=== PATIENT | female | born 1945 | race Caucasian/White ===

== ENCOUNTER 2016-08-30 15:55 | Emergency (ER) | payer MEDICARE, BC ==
[2016-08-30 16:23] VITALS: BP 136/84
--- NOTE | 2016-08-30 17:01 | EDM.PDOC ---
[id number] LEFT KNEE SEEMS INFECTED Time Seen by Provider: 08/30/16 16:35 Source: Reports: Patient History Limitations: Reports: No limitations - History of Present Illness INITIAL COMMENTS - FREE TEXT/NARRATIVE: 71-year-old healthy female felt an irritation on the inside of her left knee over the past 2 days, yesterday pulled a thorn out of her medial knee. Today she noticed it was still irritated so after a hike she checked it and it was reddened with a small streak running up the medial aspect of her thigh. She has just a small amount of discomfort and no fever. Timing: Reports: still present Location, Skin: Reports: lower extremity, left Associated symptoms: Denies: denies other symptoms, shortness of breath - Related Data Allergies Allergy/AdvReac Type Severity Reaction Status Date / Time cat dander Allergy Difficulty Verified 08/30/16 16:20 Breathing dog dander Allergy Difficulty Verified 08/30/16 16:20 Breathing Sulfa (Sulfonamide Allergy Rash Verified 08/30/16 16:20 Antibiotics) venom-honey bee Allergy Hives Verified 08/30/16 16:20 [bee venom (honey bee)] Home Meds: Ambulatory Orders Medication Instructions Recorded Confirmed EPINEPHrine [Epinephrine] 0.3 mg IM ASDIRECTED PRN 09/11/15 08/30/16 Past Medical History HEENT History: Reports: Allergic rhinitis, Cataract Cardiovascular History: Reports: Heart murmur Gastrointestinal History: Reports: Colon polyp PROCESS OWNER History: Reports: Musculoskeletal History: Reports: Arthritis, Neck pain, chronic Neurological History: Reports: Seizure - Infectious Disease History Infectious Disease History: Reports: Other (see below) Other Infectious Disease History: possible tick borne illness - Past Surgical History HEENT Surgical History: Reports: Tonsillectomy GI Surgical History: Reports: Colonoscopy Female Surgical History: Reports: Breast biopsy, Other (see below) Other Female Surgeries/Procedures: bladder sling Musculoskeletal Surgical History: Reports: Arthroscopic knee, Other (see below) Other Musculoskeletal Surgeries/Procedures:: left knee meniscus tear repair Social & Family History - Tobacco Use Smoking Status *Q: Never Smoker Second Hand Smoke Exposure: No - Caffeine Use Caffeine Use: Reports: Coffee - Recreational Drug Use Recreational Drug Use: No ED ROS GENERAL - Review of Systems Review Of Systems: See Below Constitutional: Denies: fever Respiratory: Denies: Shortness of Breath Cardiovascular: Denies: Chest pain GI/Abdominal: Denies: Abdominal pain, Nausea, Vomiting ED EXAM, SKIN/RASH Exam: See Below Exam Limited By: No limitations General Appearance: alert, no apparent distress Respiratory/Chest: no respiratory distress Extremities: other (Exam is otherwise limited to the left knee. There is erythema and slight warmth over the medial aspect with a streak of redness up the medial thigh. No fluctuance or significant tenderness. No knee effusion.) Course - Vital Signs Last Recorded V/S: Last Vital Signs Temp 97.7 F 08/30/16 16:19 Pulse 74 08/30/16 16:19 Resp 14 08/30/16 16:19 BP 136/84 08/30/16 16:19 Pulse Ox 98 08/30/16 16:19 - Re-Assessments/Exams Free Text/Narrative Re-Assessment/Exam: 08/30/16 17:02 Patient will be placed on Augmentin twice daily for at least 5 days, she has an appointment with her primary doctor in 4 days so she can be rechecked at that time. Return sooner if worsening or concerns. Departure - Departure Time of Disposition: 17:14 Disposition: Home, Self-Care 01 Condition: good Clinical Impression: Cellulitis of left knee Instructions: Cellulitis, Adult Referrals: Kath Merlos PA [Primary Care Provider] - Forms: ED Department Discharge Care Plan Goals: Take antibiotic twice daily with food. Recheck on Thursday as scheduled, or return sooner if worsening despite treatment. Activity as tolerated.
== END 2016-08-30 17:15 | disposition home or self-care (01) ==
LOC: JP.ED 15:55
DX: L03.116 Cellulitis of left lower limb (principal); Z88.2 Allergy status to sulfonamides
CPT/HCPCS: 99283

== ENCOUNTER 2021-01-08 06:30 | Day surgery (SDC) | payer MEDICARE ==
[2021-01-08] MEDS ORDERED: Sodium Chloride 0.9% 1,000 ML IV SCH (07:00)
[2021-01-08] MEDS ORDERED: Propofol 200 MG/20 ML SDV ONE (07:24)
[2021-01-08] MEDS ORDERED: fentaNYL 100 MCG/2 ML SDV ONE (07:25)
[2021-01-08] MEDS ORDERED: Glycopyrrolate 0.2 MG/ML 2 ML SDV ONE (08:11)
[2021-01-08 09:35] VITALS: BP 126/76; PULSE 59
--- NOTE | 2021-01-08 13:25 | OR ---
DATE OF PROCEDURE: 01/08/2021 SURGEON: Carmelo Cain MD PROCEDURE: Colonoscopy. FINDINGS: 1. No gross abnormality. 2. Termination of the procedure after reaching the cecum due to bradycardia refractory to Robinul and other modalities. COMPLICATIONS: None. FLATBED OWNER OPERATOR: None. ANESTHESIA: MAC. PREOPERATIVE DIAGNOSIS: Screening colonoscopy. POSTOPERATIVE DIAGNOSIS: Screening colonoscopy. RISKS: Risks, benefits, alternatives, and limitations including, but not limited to infection, bleeding, perforation, false positives and false negatives were explained to the patient and she wished to proceed. PROCEDURE IN DETAIL: The patient was placed in left lateral decubitus position. Digital rectal exam was performed without abnormality. Scope was introduced and advanced atraumatically to the ileocecal valve. A photo was taken. During the ascent into the colon, the patient had 2 bradycardic events. She had a third one and all of these were refractory to Robinul. Bradycardia was down into the 30s. Therefore, the procedure was terminated after reaching the cecum due to this bradycardic event and the risks outweighed the benefits at that moment in conjunction with discussion with Anesthesia. Scope was brought back in a fairly rapid fashion. Therefore, we did not reach the optimal goal of seeing 90% of the luminal surface. Although from what we could see, no abnormalities were noted. The patient's heart rate returned to normal and tolerated the procedure well. She did not have any hypoxia or hypotension during this procedure. Carmelo Cain MD /[id number]
== END 2021-01-08 09:40 | disposition home or self-care (01) ==
LOC: JP.SDS 06:30
PROVIDERS: ATTEND Surgery
DX: Z12.11 Encounter for screening for malignant neoplasm of colon (principal); Z53.09 Procedure and treatment not carried out because of other contraindication; R00.1 Bradycardia, unspecified; Z88.2 Allergy status to sulfonamides
CPT/HCPCS: J2704; J3010; J3490; J7030